=== PATIENT | male | born 1985 | race Caucasian/White ===

== ENCOUNTER 2023-11-10 06:21 | Day surgery (SDC) | payer OTHER, SELFPAY ==
[2023-11-10] VITALS (8 sets, daily range): BP systolic 131–144; BP diastolic 80–93; BMI 23.7
[2023-11-10] MEDS: NORMOSOL-R 1000 IV (10:01)
[2023-11-10] MEDS: Pyridium 200 MG PO (13:28)
[2023-11-15 18:19] LABS: Stone Analysis Mass 15 mg
== END 2023-11-10 14:40 | disposition home or self-care (01) ==
LOC: SDS 06:21
PROVIDERS: ATTENDING PHYSICIAN Specialist
DX: N20.1 Calculus of ureter (principal)
CPT/HCPCS: 52356; 74018; 76000; 82365; C1769; C1894; C2617

== ENCOUNTER → 2023-11-29 16:20 | Outpatient (REF) | payer OTHER, SELFPAY | LOC: REG 16:20 | PROVIDERS: ATTENDING PHYSICIAN Specialist | DX: N39.0 Urinary tract infection, site not specified (principal) | CPT/HCPCS: 87086 ==

== ENCOUNTER → 2023-12-23 14:16 | Outpatient (REF) | payer OTHER, SELFPAY | LOC: HWRAD 14:16 | PROVIDERS: ATTENDING PHYSICIAN Specialist; FAMILY PHYSICIAN Family Medicine | DX: N20.0 Calculus of kidney (principal) | CPT/HCPCS: 76770 ==